=== PATIENT | female | born 1975 | race Two or more races ===

== ENCOUNTER → 2024-05-01 | Outpatient (CLI) | payer OTHER, SELFPAY ==
--- NOTE | 2024-05-01 12:30 | XR_ITS ---
Examination: Abdomen sonogram, complete Date and time of exam: May 01, 2024 1250 hours INDICATIONS: Right upper abdominal pain this week. Technique: Multiple real-time grayscale transabdominal sonographic images of the abdomen have been obtained. Findings: Gallbladder not visualized Common bile duct not visualized Pancreatic head 3.0 cm Mid and distal aorta visualized not enlarged Liver 13.1 cm no liver lesions Normal hepatopedal portal venous flow Patent IVC Right kidney 10.5 x 3.8 x 6.0 cm renal cortex 1.7 cm Left kidney 11.2 x 5.1 x 5.5 cm cortex 2.0 cm No hydronephrosis or renal calculi Spleen 8.1 cm IMPRESSION: Limited study No diagnostic visualization gallbladder or common bile duct Liver normal size
== END | disposition home or self-care (01) ==
PROVIDERS: PCP Family Medicine; Referring Provider Family Medicine; Visit Provider Family Medicine
DX: R10.11 Right upper quadrant pain (principal)
CPT/HCPCS: 76700

== ENCOUNTER → 2025-04-14 | Outpatient (CLI) | payer OTHER, BC, SELFPAY ==
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
== END | disposition home or self-care (01) ==
PROVIDERS: PCP Family Medicine; Referring Provider Family Medicine; Visit Provider Family Medicine
DX: S29.9XXA Unspecified injury of thorax, initial encounter (principal); V89.2XXA Person injured in unspecified motor-vehicle accident, traffic, initial encounter
CPT/HCPCS: 71120; 76641